=== PATIENT | female | born 1980 | race Caucasian/White ===

== ENCOUNTER 2017-12-13 10:30 | Day surgery (SDC) | payer OTHER, SELFPAY ==
[2017-12-08 11:24] VITALS: BMI 27.3
[2017-12-13] VITALS (7 sets, daily range): BP systolic 116–164; BP diastolic 56–86; PULSE 72–97; RESP 18–20; TEMP 36.7–36.9; O2SAT 98–100
[2017-12-13 11:21] LABS: Urine Pregnancy, HCG Qual. Negative (Negative)
--- NOTE | 2017-12-13 12:25 | SUR.PREOP ---
Addendum entered by Lurdes Izaguirre RN 12/13/17 12:47: PT ASSISTED SECOND TIME TO BR, VOIDED W/OUT DIFF, NO C/O'S VOICED AT THIS TIME 1247 12/13 Original Note: PT ASSISTED TO BR, VOIDED W/OUT DIFF. NO C/O'S RETURNED TO STRETCHER
--- NOTE | 2017-12-13 13:23 | HMH.PROC ---
[facility] Procedure Note Procedure Note:: Colonoscopy Procedure Report: Colonoscopy with cold snare polypectomy Endoscopist: Vitaliy Romero II, MD Referring physician: Jessica MORALES Date of Procedure: December 13, 2017 Equipment: Olympus 180 variable stiffness pediatric colonoscope Sedation: MAC sedation Indication: Mrs. Ghotra is a 37-year-old female with bright red rectal bleeding 1 month ago with some constipation and lower abdominal pain. She is being treated by her certified court/medical interpreter with [employer] and has had some abdominal symptoms with this. She also takes Advil. The patient has had some weight loss. She reports no family history of colitis, Crohn's disease or colon cancer. Procedure: Prior to the procedure, a history and physical exam was performed, and patient's medications and allergies were reviewed. The risks, benefits and alternatives of the sedation and procedure were discussed with the patient. All questions were answered and informed consent was obtained. The patient was brought to the procedure room. Patient identification and proposed procedure were verified by the physician and the nurse. The patient was placed in a left lateral decubitus position and the scope was passed under direct vision. Throughout the procedure, the patient's blood pressure, pulse, and oxygen saturations were monitored continuously. The colonoscopy was accomplished without difficulty. The patient tolerated the procedure well. Findings: On digital rectal examination there was normal rectal tone. There were no external hemorrhoids. The colonoscope was introduced through the anal canal to the rectum and advanced to the cecum. The ileocecal valve and appendiceal orifice were identified. The scope was advanced a short distance into the ileum which appeared grossly normal. The scope was then withdrawn into the colon. There was a single 4-5 mm polyp in the cecum removed via cold snare polypectomy. The remaining cecum, ascending, transverse, descending, sigmoid and rectum were grossly normal. There were no mucosal abnormalities identified. Upon retroflexion within the rectum there were grade 1 internal hemorrhoids. Impression: 1. Diminutive cecal polyp 2. Small grade 1 internal hemorrhoids Plan: I do feel that the patient may have some functional bowel disease. I will discuss additional dietary measures and treatment options. I will follow up the polyp histology and discuss surveillance if the polyp is adenomatous.
--- NOTE | 2017-12-13 13:28 | P.PCN_ITS ---
[facility] Procedure Note Procedure Note:: Colonoscopy Procedure Report: Colonoscopy with cold snare polypectomy Endoscopist: Vitaliy Romero II, MD Referring physician: Jessica MORALES Date of Procedure: December 13, 2017 Equipment: Olympus 180 variable stiffness pediatric colonoscope Sedation: MAC sedation Indication: Mrs. Ghotra is a 37-year-old female with bright red rectal bleeding 1 month ago with some constipation and lower abdominal pain. 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 She also takes Advil. The patient has had some weight loss. She reports no family history of colitis, Crohn's disease or colon cancer. Procedure: Prior to the procedure, a history and physical exam was performed, and patient' s medications and allergies were reviewed. The risks, benefits and alternatives of the sedation and procedure were discussed with the patient. All questions were answered and informed consent was obtained. The patient was brought to the procedure room. Patient identification and proposed procedure were verified by the physician and the nurse. The patient was placed in a left lateral decubitus position and the scope was passed under direct vision. Throughout the procedure, the patient's blood pressure, pulse, and oxygen saturations were monitored continuously. The colonoscopy was accomplished without difficulty. The patient tolerated the procedure well. Findings: On digital rectal examination there was normal rectal tone. There were no external hemorrhoids. The colonoscope was introduced through the anal canal to the rectum and advanced to the cecum. The ileocecal valve and appendiceal orifice were identified. The scope was advanced a short distance into the ileum which appeared grossly normal. The scope was then withdrawn into the colon. There was a single 4-5 mm polyp in the cecum removed via cold snare polypectomy. The remaining cecum, ascending, transverse, descending, sigmoid and rectum were grossly normal. There were no mucosal abnormalities identified. Upon retroflexion within the rectum there were grade 1 internal hemorrhoids. Impression: 1. Diminutive cecal polyp 2. Small grade 1 internal hemorrhoids Plan: I do feel that the patient may have some functional bowel disease. I will discuss additional dietary measures and treatment options. I will follow up the polyp histology and discuss surveillance if the polyp is adenomatous.
--- NOTE | 2017-12-13 15:27 | P.PN_ITS ---
[facility] Anesthesia Checklist - Patient Identification Patient Identification: Arm Band - Structural Data Admitted From: Home Planned Operative Procedure/s: colonoscopy Consent for Planned Operative Procedure(s) Verified: Yes Verified Documents: Surgical Consent, History and Physical - NPO Status Verified Time NPO: 00:00 - Additional verifications Anesthesia Reactions: No - Airway Assessment C-Spine Mobility Assessed: Yes (mp2) TMJ Mobility Assessed: Yes Dentition: Good Dentition - Neurological Assessment Level of Consciousness: Awake, Alert - Anesthesia Plan Anesthesia Risk discussed: Yes Anesthesia Plan: Verified ASA Class: II Anesthesia Type: MAC [facility] Anesthesia HX Medical History: Reports:: Heart Murmur, Hypertension Denies:: Diabetes Mellitus Type 1, Diabetes Mellitus Type 2, Internal Pacemaker, Lung Disease, Seizures Other Surgeries: Yes: . No: Pacemaker
== END 2017-12-13 14:25 | disposition home or self-care (01) ==
LOC: OUTP 10:31
PROVIDERS: Family Provider Internal Medicine Adolescent Medicine; PCP Family Medicine; Visit Provider Internal Medicine Gastroenterology
PROC: 0DJD8ZZ Inspection of Lower Intestinal Tract, Via Natural or Artificial Opening Endoscopic (ICD-10-PCS; CPT 45378; principal; 2017-12-13 11:30)
DX: K63.5 Polyp of colon; K64.0 First degree hemorrhoids
CPT/HCPCS: 45385; 81025

== ENCOUNTER → 2021-04-22 11:46 | Outpatient (CLI) | payer OTHER, SELFPAY ==
[2021-04-22 11:50] LABS: Adenovirus F 40/41, stool Not Detected (NotDetected); Astrovirus Not Detected (NotDetected); Clostridium Difficile A/B, PCR Not Detected (NotDetected); Cryptosporidium Not Detected (NotDetected); Cyclospora Cayetanesis Not Detected (NotDetected); Entamoeba histolytica Not Detected (NotDetected); Enteroaggregative E coli Not Detected (NotDetected); Enteropathogenic E coli Not Detected (NotDetected); Enterotoxigenic E coli Not Detected (NotDetected); Giardia lamblia Not Detected (NotDetected); Norovirus Not Detected (NotDetected); Plesimonas Shigalloides, PCR Not Detected (NotDetected); Rotavirus A Not Detected (NotDetected); Salmonella, PCR Not Detected (NotDetected); Sapovirus Not Detected (NotDetected); Shiga-like toxin E coli Not Detected (NotDetected); Shigella Enterovasive E coli Not Detected (NotDetected); Vibrio Cholerae Not Detected (NotDetected); Vibrio, PCR Not Detected (NotDetected); Yersinia Entercolitica, PCR Not Detected (NotDetected)
[2021-04-23 03:25] LABS: Campylobacter Detected (NotDetected)
== END ==
PROVIDERS: Visit Provider Family Medicine
DX: R19.7 Diarrhea, unspecified (principal); A04.5 Campylobacter enteritis
CPT/HCPCS: 87507

== ENCOUNTER → 2021-10-13 14:19 | Outpatient (CLI) | payer OTHER, SELFPAY | PROVIDERS: Visit Provider Nurse Practitioner | DX: U07.1 COVID-19 (principal) | CPT/HCPCS: C9803; U0003; U0005 ==

== ENCOUNTER → 2022-04-03 13:14 | Outpatient (CLI) | payer OTHER, SELFPAY ==
[2022-04-03 13:50] LABS: Alanine Aminotransferase 22 U/L (12-78); Albumin Level 4.5 g/dl (3.5-5.0); Albumin/Globulin Ratio 1.7 (1.1-1.8); Alkaline Phosphatase 68 U/L (38-126); Amylase 71 U/L (30-110); Anion Gap 11.1 mEq/L (5-15); Aspartate Amino Transferase 21 U/L (14-36); Bilirubin,Total 0.1 mg/dl (0.2-1.3); Blood Urea Nitrogen 12 mg/dl (7-17); Calcium 9.7 mg/dl (8.4-10.2); Carbon Dioxide 31 mmol/L (22.0-30.0); Chloride 104 mmol/L (98-107); Estimated Glomerular Filt Rate 79 ml/min (>60); GFR (African American) 96 ML/MIN (>60); Globulin 2.7 g/dL (1.3-3.2); Glucose 91 mg/dl (74-100); Lipase 250 U/L (23-300); Potassium 3.1 mmoL/L (3.5-5.1); Sodium 143 mmol/L (136-145); Total Protein,Serum 7.2 g/dl (6.3-8.2)
[2022-04-03 14:02] LABS: Basophils # 0.1 K/mm3 (0-0.2); Basophils % 1.2 % (0.1-2.0); Eosinophils # 0.1 K/mm3 (0.0-0.4); Eosinophils % 0.7 % (0.1-12.0); Hematocrit 46.3 % (37.0-47.0); Hemoglobin 14.4 g/dL (12.2-16.2); Lymphocytes # 2.4 K/mm3 (0.7-4.5); Lymphocytes % 25.9 % (10-50); Mean Corpuscular HGB Conc 31.1 g/dL (31.8-35.4); Mean Corpuscular Hemoglobin 31.2 pg (27.0-31.2); Mean Corpuscular Volume 100.1 fl (81-99); Mean Platelet Volume 7.9 fl (7.4-10.4); Monocytes # 0.4 K/mm3 (0.1-1.0); Monocytes % 4.4 % (1.7-9.3); Neutrophils # 6.4 K/mm3 (1.8-7.8); Neutrophils % 67.9 % (37.0-80.0); Platelet Count 482 K/mm3 (142-424); Red Blood Count 4.62 M/mm3 (4.20-5.40); Red Cell Distribution Width 13.2 % (11.5-17.5); White Blood Count 9.4 K/mm3 (4.8-10.8)
== END ==
PROVIDERS: PCP Nurse Practitioner Family; Visit Provider Nurse Practitioner Family
DX: R10.9 Unspecified abdominal pain (principal); R10.13 Epigastric pain
CPT/HCPCS: 36415; 80053; 82150; 83690; 85025

== ENCOUNTER 2022-04-08 21:27 | Emergency (ER) | payer OTHER, SELFPAY ==
[2022-04-08 21:29] VITALS: BP 191/102; PULSE 117; RESP 18; TEMP 37.2; O2SAT 97; BMI 22.3
[2022-04-08 21:47] LABS: Microscopic, Urine URINE MICROSCOPIC (MICROSCOPIC)
[2022-04-08 21:48] VITALS: BMI 22.3
--- NOTE | 2022-04-08 21:48 | CT_ITS ---
PROCEDURE INFORMATION: Exam: CT Abdomen And Pelvis With Contrast Exam date and time: 04/08/2022 10:05 PM Age: 42 years old Clinical indication: Abdominal pain; Localized; Right upper quadrant (ruq); Additional info: Ruq pain TECHNIQUE: Imaging protocol: Computed tomography of the abdomen and pelvis with contrast. Radiation optimization: All CT scans at this facility use at least one of these dose optimization techniques: automated exposure control; mA and/or kV adjustment per patient size (includes targeted exams where dose is matched to clinical indication); or iterative reconstruction. Contrast material: ISOVUE; Contrast volume: 75 ml; Contrast route: IV; COMPARISON: PTV US PELVIS-TRANSVAGINAL ONLY 10/28/2015 3:26 PM FINDINGS: Liver: See Vasculature finding. Gallbladder and bile ducts: Normal. Pancreas: Normal. Spleen: Splenic calcifications, compatible with prior granulomatous disease. Adrenal glands: Normal. No mass. Kidneys and ureters: Normal. Stomach and bowel: Normal. Appendix: No evidence of appendicitis. Intraperitoneal space: Unremarkable. No free air. No significant fluid collection. Vasculature: Phleboliths within the pelvis. Main portal vein is minimally enlarged, measuring 14 mm in diameter at the micaela hepatis, which can be seen with portal hypertension. Lymph nodes: Unremarkable. No enlarged lymph nodes. Urinary bladder: Unremarkable as visualized. Reproductive: Probable small uterine fibroids. Bones/joints: No acute abnormality. Soft tissues: Normal. IMPRESSION: No acute abdominal or pelvic abnormality.
[2022-04-08 21:49] LABS: Appearance,Urine CLEAR (Clear); Bilirubin,Urine Negative (Negative); Blood, Urine Negative (Negative); Color,Urine YELLOW (Yellow); Glucose,Urine (UA) Negative (Negative); Ketones,Urine Negative (Negative); Leukocyte Esterase,Urine Negative (Negative); Nitrate,Urine Negative (Negative); Protein,Urine Negative (Negative); Urobilinogen,Urine 0.2 EU/dl (0.2)
--- NOTE | 2022-04-08 21:50 | PC.NURSE ---
At 2150, IV was attempted in patient right at (20g), patient at that time explained that she gets anxious with needles. I explained to patient that I understood and it's not uncommon to get anxious with an IV catheter placement. After attempting an IV unsuccessfully patient became very clammy and anxious and asked if we could take a break, that she thought she was going to vomit. Patient was given a cool wet wash cloth and we reattempted the IV placement with a different 20g IV catheter and it was successful.
[2022-04-08 21:54] LABS: Urine Pregnancy, HCG Qual. Negative (Negative)
[2022-04-08 22:01] VITALS: BP 112/65; PULSE 118; O2SAT 98
--- NOTE | 2022-04-08 22:10 | PC.NURSE ---
Patient was transported to CT scan for procedure when net technical architect requested nurse assist. Zeferino Winter and myself (Kylie Pastor) responded to call and found that the patients teeth were clamped and her hands were in fists with arms bent towards her chest and she was unable to relax. Patient repeatedly asked for help and said that she was not okay. Asked patient if she was hurting or feeling light headed and she verbalized that it was her anxiety. Patient never lost consciousness and was able to answer questions and follow commands as able, with exception of loosening her forest fire prevention specialist on her hands and jaw. Patient was ordered 1mg IV ativan at that time for anxiety. Advised net technical architect that we were going to give the patient some time to relax and calm down. I spoke with the patient for several minutes in her room until shew as able to verbalize that she felt better and was able to relax her hands.
[2022-04-08 22:35] LABS: Basophils % 0.4 % (0.1-2.0); Eosinophils # 0.2 K/mm3 (0.0-0.4); Hematocrit 42.7 % (37.0-47.0); Lymphocytes # 2.5 K/mm3 (0.7-4.5); Lymphocytes % 28.6 % (10-50); Mean Corpuscular HGB Conc 35.2 g/dL (31.8-35.4); Mean Corpuscular Hemoglobin 32.3 pg (27.0-31.2); Mean Corpuscular Volume 91.8 fl (81-99); Monocytes # 0.4 K/mm3 (0.1-1.0); Monocytes % 4.2 % (1.7-9.3); Neutrophils # 5.7 K/mm3 (1.8-7.8); Neutrophils % 64.9 % (37.0-80.0); Platelet Count 369 K/mm3 (142-424); Red Blood Count 4.65 M/mm3 (4.20-5.40); Red Cell Distribution Width 12.5 % (11.5-17.5); White Blood Count 8.8 K/mm3 (4.8-10.8)
[2022-04-08 22:42] LABS: Bacteria,Urine Trace /lpf; WBC,Urine Occasional #/hpf (0-3)
[2022-04-08 22:46] LABS: Alanine Aminotransferase 24 U/L (12-78); Albumin Level 4.8 g/dl (3.5-5.0); Albumin/Globulin Ratio 1.3 (1.1-1.8); Alkaline Phosphatase 70 U/L (38-126); Amylase 90 U/L (30-110); Anion Gap 13.4 mEq/L (5-15); Aspartate Amino Transferase 40 U/L (14-36); Bilirubin,Total 0.3 mg/dl (0.2-1.3); Blood Urea Nitrogen 4 mg/dl (7-17); Calcium 9.9 mg/dl (8.4-10.2); Carbon Dioxide 30 mmol/L (22.0-30.0); Chloride 102 mmol/L (98-107); Creatinine Clearance Estimated 104 mL/min (50-200); Estimated Glomerular Filt Rate 110 ml/min (>60); GFR (African American) 133 ML/MIN (>60); Globulin 3.7 g/dL (1.3-3.2); Glucose 114 mg/dl (74-100); Lipase 271 U/L (23-300); Potassium 3.4 mmoL/L (3.5-5.1); Sodium 142 mmol/L (136-145); Total Protein,Serum 8.5 g/dl (6.3-8.2)
[2022-04-08 22:51] LABS: C-Reactive Protein 10.7 mg/L (0-4)
[2022-04-08 22:57] LABS: Erythrocyte Sedimentation Rate 10 mm/hr (0-20)
[2022-04-08 23:17] LABS: Procalcitonin < 0.030 ng/mL (0.0-2.0)
[2022-04-08 23:30] VITALS: BP 160/84; PULSE 100; O2SAT 98
[2022-04-09] VITALS: BP 162/79; PULSE 114; O2SAT 98
[2022-04-09 00:30] VITALS: BP 158/87; PULSE 83; O2SAT 98
--- NOTE | 2022-04-09 00:36 | HMH.EDNVD ---
ED Disposition Clinical Impression: Abdominal pain Qualifiers: Abdominal location: right upper quadrant Qualified Code(s): R10.11 - Right upper quadrant pain Disposition: Home, Self-Care Condition on Discharge: Fair Instructions: DI for Acute Abdominal Pain Additional Instructions: call pcp in am Referrals: Manju Wells APRN [Primary Care Provider] - - Critical Care Critical Care Time: No Attestation: On 04/08/22, the high probability of a clinically significant, sudden or life threatening deterioration of the following system(s) required my full and direct attention, intervention and personal management. The time I documented below is in addition to time spent performing reported procedures but includes the following listed in this critical care notation. Medical Decision Making - Medical Records Medical records reviewed: Yes: I reviewed the patient's medical records. - Orion Inquiry Pt receiving controlled substance: No Vital Signs: 04/08/22 21:29 04/08/22 22:01 04/08/22 23:30 Temperature 99.0 F Temperature Source Oral Pulse Rate 118 H 100 H Pulse Rate [Right] 117 H Respiratory Rate 18 Blood Pressure 112/65 160/84 H Blood Pressure [Right Arm] 191/102 H Blood Pressure Mean [Right Arm] 131 02 Sat by Pulse Oximetry 97 98 98 Oxygen Delivery Method Room Air Room Air - Lab Data Lab results reviewed: Yes: I reviewed the patient's lab results. Lab Results 04/08/22 21:38: Urine Color Yellow, Urine Appearance Clear, Urine pH 7.0, Ur Specific Perry 1.010, Urine Protein Negative, Urine Glucose (UA) Negative, Urine Ketones Negative, Urine Blood Negative, Urine Nitrate Negative, Urine Bilirubin Negative, Urine Urobilinogen 0.2, Ur Leukocyte Esterase Negative, Urine WBC Occasional, Ur Squamous Epith Cells 3-5, Urine Bacteria Trace 04/08/22 21:38: Urine HCG, Qual Negative 04/08/22 22:05: WBC 8.8, RBC 4.65, Hgb 15.0, Hct 42.7, MCV 91.8, MCH 32.3 H, MCHC 35.2, RDW 12.5, Plt Count 369, MPV 8.0, Neut % (Auto) 64.9, Lymph % (Auto) 28.6, Nuckolls % (Auto) 4.2, Eos % (Auto) 2.0, Baso % (Auto) 0.4, Neut # (Auto) 5.7, Lymph # (Auto) 2.5, Nuckolls # (Auto) 0.4, Eos # (Auto) 0.2, Baso # (Auto) 0.0, ESR 10 04/08/22 22:05: Sodium 142, Potassium 3.4 L, Chloride 102, Carbon Dioxide 30, Anion Gap 13.4, BUN 4 L, Creatinine 0.60, Estimated Creat Clear 104, Estimated GFR 110, Est GFR ( Amer) 133, Glucose 114 H, Calcium 9.9, Total Bilirubin 0.3, AST 40 H, ALT 24, Alkaline Phosphatase 70, C-Reactive Protein 10.7 H, Total Protein 8.5 H, Albumin 4.8, Globulin 3.7 H, Albumin/Globulin Ratio 1.3, Amylase 90, Lipase 271, Procalcitonin < 0.030 Result diagrams: 04/08/22 22:05 04/08/22 22:05 Orders (Tests/Meds): ED MEDICATIONS Generic Name Dose Route Start Last Admin Trade Name Freq PRN Reason Stop Dose Admin Sodium Chloride 1,000 mls @ 999 mls/hr 04/08/22 22:00 04/08/22 22:37 Sod Chlor 0.9% 1000ml Bag IV 04/08/22 23:00 999 mls/hr .Q1H1M MONE Administration Sodium Chloride 8 ml 04/08/22 21:49 04/08/22 22:37 Sodium Chloride 0.9% 10ml Vial IV 05/08/22 21:48 8 ml NEEDED PRN Administration dilute pepcid Sodium Chloride 10 ml 04/08/22 23:05 Sodium Chloride 0.9% 10ml Vial IV 05/08/22 23:04 NEEDED PRN to Dilute Lorazepam inj Discontinued Medications Generic Name Dose Route Start Last Admin Trade Name Freq PRN Reason Stop Dose Admin Famotidine 20 mg 04/08/22 21:49 04/08/22 22:37 Famotidine 20mg/2ml Vial IV 04/08/22 21:50 20 mg ONCE ONE Administration Iopamidol 75 ml 04/08/22 23:06 04/08/22 23:08 Iopamidol-370 (76%);100ml Bottle IV 04/08/22 23:07 75 ml ONCE ONE Administration Ketorolac Tromethamine 30 mg 04/08/22 21:49 04/08/22 22:38 Ketorolac 30mg/Ml Vial IV 04/08/22 21:50 30 mg ONCE ONE Administration Lorazepam 1 mg 04/08/22 23:05 04/08/22 23:05 Lorazepam 2mg/Ml Vial IV 04/08/22 23:06 1 mg ONCE ONE Administration
--- NOTE | 2022-04-09 00:39 | PC.NURSE ---
at updating pt on POC
[2022-04-09 00:57] VITALS: BP 158/87; PULSE 83; RESP 18; TEMP 36.6; O2SAT 99
== END 2022-04-09 01:35 | disposition home or self-care (01) ==
PROVIDERS: Emergency Provider Emergency Medicine; PCP Nurse Practitioner Family
DX: R10.11 Right upper quadrant pain (principal); Z88.1 Allergy status to other antibiotic agents; I10 Essential (primary) hypertension
CPT/HCPCS: 74177; 80053; 81001; 81025; 82150; 83690; 84145; 85025; 85651; 86140; 96365; 96375; 99284; J2405; Q9967

== ENCOUNTER → 2022-04-10 09:18 | Outpatient (CLI) | payer OTHER, SELFPAY ==
--- NOTE | 2022-04-10 09:22 | US_ITS ---
FINAL REPORT CLINICAL HISTORY: UPPER ABD PAIN, DYSPEPSIA FINDINGS: ULTRASOUND RIGHT UPPER QUADRANT Sonographic imaging of the right upper quadrant was obtained. The pancreas is partially obscured. The liver is unremarkable. There is a minimal amount of sludge within the gallbladder with no evidence of gallstones. There is no gallbladder wall thickening. There is no biliary ductal dilatation. The common duct is normal at 2 mm. Limited images of the right kidney are unremarkable. IMPRESSION: Minimal gallbladder sludge, otherwise unremarkable right upper quadrant ultrasound. Reviewed, Interpreted and Dictated by Kraig Martinez III, MD Transcribed by Amanda Gabriel Authenticated and [facility]
== END ==
PROVIDERS: PCP Nurse Practitioner Family; Visit Provider Nurse Practitioner Family
DX: R10.10 Upper abdominal pain, unspecified (principal); R10.13 Epigastric pain
CPT/HCPCS: 76705

== ENCOUNTER → 2022-05-05 10:14 | Outpatient (CLI) | payer OTHER, SELFPAY ==
--- NOTE | 2022-05-05 10:21 | NM_ITS ---
FINAL REPORT TECHNIQUE: The patient was injected with 8.73 mCi of technetium 99m Choletec and subsequently 2.4 mcg of Ensure. Images of the abdomen were obtained for one hour. CLINICAL HISTORY: UPPER ABDOMIAL PAIN; SLUDGE IN GALLBLADDER 10:30AM 8.73 MCI TC CHOLETEC ENSURE FINDINGS: There is normal uptake of the radiotracer by the liver. There is gallbladder and bile duct activity is seen at 10 minutes. The small bowel activity is seen at 20 minutes. After 1 hour, post Ensure images render an ejection fraction of 64%. IMPRESSION: No bile duct or cystic duct obstruction Normal ejection fraction. Reviewed, Interpreted and Dictated by Kraig Martinez III, MD Transcribed by Flor Ghotra Authenticated and [facility]
--- NOTE | 2022-05-05 10:39 | HMH.ITSHM ---
Current Home Medications as stated by this patient Terri Ghotra or access service representative. []RANITIDINE PROMETHAZINE NIFEDIPINE MANDY OSWALDO GRAY
== END ==
PROVIDERS: PCP Nurse Practitioner Family; Visit Provider Nurse Practitioner Family
DX: R10.10 Upper abdominal pain, unspecified (principal); K82.8 Other specified diseases of gallbladder
CPT/HCPCS: 78226; A9537

== ENCOUNTER 2023-08-25 11:23 | Emergency (ER) | payer MEDICAID, SELFPAY ==
[2023-08-25 12:15] VITALS: BP 181/96; PULSE 86; RESP 18; TEMP 36.8; O2SAT 98; BMI 21.7
--- NOTE | 2023-08-25 12:19 | EXP.UTC ---
Discharge Plan Disposition Patient Disposition: Home, Self-Care Condition: Good Prescriptions Prescriptions: New amoxicillin [amoxicillin] 875 mg tablet 875 mg PO Q12H Qty: 20 0RF benzonatate [benzonatate] 100 mg capsule 100 mg PO TIDP PRN (Reason: Cough) Qty: 30 0RF guaifenesin [Mucinex] 600 mg tablet extended release 12hr 600 - 1,200 mg PO BIDP PRN (Reason: Congestion) Qty: 30 0RF No Action ethynodiol diac-eth estradiol [[employer] (28)] 1 EACH tablet 1 ea PO DAILY nifedipine [Adalat CC] 30 MG tablet extended release 30 mg PO DAILY citalopram 20 MG tablet 20 mg PO DAILY losartan 25 MG tablet 25 mg PO DAILY omeprazole 20 mg capsule,delayed release(DR/EC) 20 mg PO DAILY Referrals Follow up/Referrals: Provider,Referral, MD [Primary Care Provider] - See instructions Activity Restrictions/Add. Instructions Additional Instructions/Restrictions: Drink plenty of fluids. Take tylenol or ibuprofen for pain or fever. Take the medications as directed. Follow up with your regular doctor. GO TO THE ER FOR ANY WORSENING SYMPTOMS Clinical Impressions Clinical Impression: Sinusitis Instructions Patient Instructions: Sinusitis, DI for Sinusitis Discharge ED Provider: Josh Mchugh [facility] General Stated complaint: sinus,nasal and congestion Time Seen by Provider: 08/25/23 12:19 History of Present Illness Provider Complaint: She states that for the past 1 week she has had worsening sinus congestion, ear pain, and sore throat. Related Data Home Medications Medication Instructions Recorded Confirmed citalopram 20 mg tablet 20 mg PO DAILY Anxiety 12/08/17 08/25/23 ethynodiol diacetate-ethinyl 1 ea PO DAILY bcp 12/08/17 08/25/23 estradiol 1 mg-35 mcg tablet (K[employer]nor) losartan 25 mg tablet 25 mg PO DAILY bp 12/08/17 08/25/23 nifedipine 30 mg tablet,extended 30 mg PO DAILY bp 12/08/17 08/25/23 release (Adalat CC) omeprazole 20 mg capsule,delayed 20 mg PO DAILY 08/25/23 08/25/23 release Previous Rx's Medication Instructions Recorded amoxicillin 875 mg tablet 875 mg PO Q12H #20 tabs 08/25/23 benzonatate 100 mg capsule 100 mg PO TIDP PRN Cough #30 caps 08/25/23 guaifenesin 600 mg tablet, 600 - 1,200 mg PO BIDP PRN 08/25/23 extended release 12 hr (Mucinex) Congestion #30 tabs Allergies Allergy/AdvReac Type Severity Reaction Status Date / Time levofloxacin [From Levaquin] AdvReac Verified 12/08/17 11:20 prednisone AdvReac Verified 08/25/23 12:22 [facility] Disclaimer: The information contained in this section may have been updated after the patient was seen, as this information can be updated by other users. Social History Smoking Status: Never smoker alcohol intake: never current occupational status: other Travel in the last 8 weeks: None household members: family caffeine: Yes ROS Obtained: Yes All systems reviewed & no additional complaints except as documented Constitutional Constitutional: Reports poor appetite Eyes Eyes: Reports system reviewed and no additional complaints, except as documented ENT Ears, Nose, Mouth, and Throat: Reports as per HPI Cardiovascular Cardiovascular: Reports system reviewed and no additional complaints, except as documented and Denies chest pain Respiratory Respiratory: Denies shortness of breath, Reports chest congestion, Reports cough, Denies stridor and Denies wheezing Gastrointestinal Gastrointestingal: Reports system reviewed and no additional complaints, except as documented; Denies abdominal pain, diarrhea or vomiting Musculoskeletal Musculoskeletal: Reports system reviewed and no additional complaints, except as documented and Denies arthralgias Integumentary/Breasts Skin/Breast: Reports system reviewed and no additional complaints, except as documented and Denies rash Neurologic Neurologic: Denies paresthesias Allerg
[2023-08-25 12:35] VITALS: BP 181/96; PULSE 86; RESP 18; TEMP 36.8; O2SAT 98
== END 2023-08-25 12:42 | disposition home or self-care (01) ==
PROVIDERS: Emergency Provider Nurse Practitioner Family
DX: J01.90 Acute sinusitis, unspecified (principal); R09.89 Other specified symptoms and signs involving the circulatory and respiratory systems; R09.81 Nasal congestion; H92.03 Otalgia, bilateral
CPT/HCPCS: 99204; 99212; G0463

== ENCOUNTER 2024-06-19 11:37 | Outpatient (CLI) | payer MEDICAID, SELFPAY ==
--- NOTE | 2024-06-19 | XR_ITS ---
FINAL REPORT CLINICAL HISTORY: RIGHT FOOT PAIN COMPARISON: None FINDINGS: RIGHT FOOT Three views demonstrate no acute fracture or dislocation. The joint spaces appear normal. No acute soft tissue abnormality is seen. IMPRESSION: No acute bony abnormality. Reviewed, Interpreted and Dictated by Pool Christianson MD Transcribed by Aimee Fisher Authenticated and [facility]
== END 2024-06-19 23:59 | disposition home or self-care (01) ==
LOC: RAD 11:38
PROVIDERS: PCP Nurse Practitioner; Visit Provider Nurse Practitioner
DX: M79.671 Pain in right foot (principal); S99.921A Unspecified injury of right foot, initial encounter
CPT/HCPCS: 73630